=== PATIENT | male | born 1950 | race Caucasian/White ===

== ENCOUNTER → 2016-12-13 | Outpatient (CLI) | payer MEDICARE, OTHER ==
[~2016-12-13] MED LIST: ALBUTEROL20 ml INH; ALDACTONE25 MG PO; ASPIRIN PO; ASPIRIN81 MG PO; BAYER ASPIRIN325 M1 PO; CLINDAMYCIN HC300 MG PO; COLACE PO; COUMADIN5 MG PO; COUMADIN7.5 MG PO; DAKIN'S MODIF1000 ML EXT; FLOMAX0.4 M1 DOB; GABAPENTIN300 M2 PO; HUMIBID-LA600 MG PO; ISOSORBIDE DINI30 MG PO; K-DUR10 MEQ PO; LASIX PO; LIPITOR PO; LISINOPRIL20 MG PO; LOPRESSOR PO; LORTAB 101 TAB 10/5 PO; LOTRIMIN 1% CR30 GM; LOVENOX SUBQ; LOVENOX80 MG/0.8 INJ; METOPROLOL SUCC50 MG PEG; METOPROLOL SUCC50 MG PO; METOPROLOL TART25 MG PO; MICRO-K10 ME2 PO; NORCO1 TAB 10/3 PO; PERCOCET5/325 PO; PREDNISONE PO; TOPROL XL 50 MG50 M1 PO; VIBRAMYCIN100 M1 PO; WALGREENS PHARMACY; XARELTO10 MG PO; XARELTO20 MG PO; ZESTRIL2.5 M1 PO
--- NOTE | ~2016-12-13 | US38 ---
[facility] A Service of [facility] RADIOLOGY TEXT RESULTS PATIENT: FRANCESCA DOLL LOCATION: CNIV : 50 UNIT #: [id number] AGE: [address]: Kenneth Waddell MD SEX: M ORDER DR: [id number] [facility] [address] [place], [place] [address] [id number] O MR#: [id number] Acc #: [id number] NAME: FRANCESCA DOLL : 1950 SEX: M STUDY DATE/TIME: 12/13/2016 11:31 UNIT: CNIV ROOM: STUDY DESCRIPTION: US Carotid W/Doppler Unilatera Attending Physician: Kenneth Waddell M.D. Referring Physician: Kenneth Waddell M.D. Ordering Physician: Kenneth Waddell M.D. Primary Care Physician: [facility]. MEDICAL IMAGING REPORT This report is preliminary unless electronic signature is present EXAM Left carotid duplex. HISTORY Left carotid endarterectomy. FINDINGS Duplex imaging of the left carotid artery was performed. The left common carotid artery is patent. Internal and external carotid arteries are patent with evidence of endarterectomy and with no re-stenosis. Velocity in the left common carotid artery is 64, internal is 63, and external is 101 cm/sec. Left ICA:CCA ratio is 1.4. Antegrade flow is seen in the right left vertebral artery. IMPRESSION Normal appearance of the left internal carotid artery, post endarterectomy. External carotid artery is patent. Antegrade flow is seen in the left vertebral artery. Dictated by... Carlos Cifuentes M.D. THIS IS AN ELECTRONICALLY VERIFIED REPORT Carlos Cifuentes M.D. at 12/17/2016 4:04 PM Jerel TD: 12/13/2016 18:27 JOB #: [id number] MEDICAL IMAGING REPORT Page 1 of 1 COPY
--- NOTE | ~2016-12-13 | US82 ---
[facility] A Service of [facility] RADIOLOGY TEXT RESULTS PATIENT: FRANCESCA DOLL LOCATION: CNIV : 50 UNIT #: [id number] AGE: [address]: Kenneth Waddell MD SEX: M ORDER DR: [id number] [facility] [address] [place], [place] [address] [id number] O MR#: [id number] Acc #: [id number] NAME: FRANCESCA DOLL : 1950 SEX: M STUDY DATE/TIME: 12/13/2016 11:00 UNIT: CNIV ROOM: STUDY DESCRIPTION: US LE Art/Art Grafts Comp Yung Attending Physician: Kenneth Waddell M.D. Referring Physician: Kenneth Waddell M.D. Ordering Physician: Kenneth Waddell M.D. Primary Care Physician: [facility]. MEDICAL IMAGING REPORT This report is preliminary unless electronic signature is present PAD , claudication EXAM Bilateral lower extremity arterial duplex HISTORY FINDINGS Arterial duplex imaging of the lower extremities was performed. The right common femoral artery is patent. Profunda femoral artery is patent and the superficial femoral artery is occluded. Collaterals are seen to reconstitute the mid and distal SFA. Flow in the popliteal artery is at low velocity at 22 cm/sec. Runoff is seen in the posterior tibial artery at the ankle at 31 cm/sec. On the left lower extremity once again the superficial femoral artery is occluded. Profunda femoral artery is patent. Collaterals reconstitute the mid and distal SFA and popliteal artery flow is 27 cm/sec and posterior tibial artery is 22 cm/sec. IMPRESSION Arterial duplex imaging reveals bilateral SFA occlusions with reconstitution of the distal superficial femoral arteries in the thighs bilaterally. Low flow is seen in the below knee popliteal arteries and in the posterior tibial arteries bilaterally. Dictated by.Vanessa. Carlos Cifuentes M.D. THIS IS AN ELECTRONICALLY VERIFIED REPORT [facility] A Service of [facility] RADIOLOGY TEXT RESULTS PATIENT: FRANCESCA DOLL LOCATION: CNIV : 50 UNIT #: [id number] AGE: [address]: Kenneth Waddell MD SEX: M ORDER DR: Carlos Cifuentes M.D. at 12/17/2016 4:08 PM Dee TD: 12/13/2016 18:18 JOB #: [id number] MEDICAL IMAGING REPORT Page 1 of 1 COPY
--- NOTE | ~2016-12-13 | US136 ---
[facility] A Service of [facility] RADIOLOGY TEXT RESULTS PATIENT: FRANCESCA DOLL LOCATION: CNIV : 50 UNIT #: [id number] AGE: [address]: Kenneth Waddell MD SEX: M ORDER DR: [id number] [facility] [address] [place], [place] [address] [id number] O MR#: [id number] Acc #: [id number] NAME: FRANCESCA DOLL : 1950 SEX: M STUDY DATE/TIME: 12/13/2016 10:35 UNIT: CNIV ROOM: STUDY DESCRIPTION: US U/L Ext Art Study [facility] Bil Attending Physician: Kenneth Waddell M.D. Referring Physician: Kenneth Waddell M.D. Ordering Physician: Kenneth Waddell M.D. Primary Care Physician: [facility] MEDICAL IMAGING REPORT This report is preliminary unless electronic signature is present EXAM Bilateral ankle to brachial indices HISTORY PAD, claudication FINDINGS Wave forms are monophasic and blunted at the ankle levels bilaterally. Right brachial pressure is 142 and left brachial pressure is 132 mmHg. On the lower extremity on the right side, dorsalis pedis is 94, posterior tibial 98, great toe is 70 for a right ankle to brachial index of 0.69. On the left side, posterior tibial pressure is 105, dorsalis pedis 104, great toe is 79 for a left ankle to brachial index of 0.74. IMPRESSION Moderate peripheral vascular disease is seen with ankle to brachial index of 0.69 on the right and 0.74 on the left. Dictated by... Carlos Cifuentes M.D. THIS IS AN ELECTRONICALLY VERIFIED REPORT Carlos Cifuentes M.D. at 12/17/2016 4:07 PM SA/to TD: 12/13/2016 18:14 JOB #: [id number] [facility] A Service of [facility] RADIOLOGY TEXT RESULTS PATIENT: FRANCESCA DOLL LOCATION: CNIV : 50 UNIT #: [id number] AGE: [address]: Kenneth Waddell MD SEX: M ORDER DR: MEDICAL IMAGING REPORT Page 1 of 1 COPY
== END | disposition home or self-care (01) ==
LOC: CNIV 10:00
DX: I65.23 Occlusion and stenosis of bilateral carotid arteries (principal); I73.9 Peripheral vascular disease, unspecified; Z98.890 Other specified postprocedural states
CPT/HCPCS: 93882; 93922; 93925